=== PATIENT | female | born 1960 | race Hispanic/Latino ===

== ENCOUNTER 2018-01-22 11:02 | Inpatient (IN) | payer BC ==
[2018-01-22] VITALS (22 sets, daily range): BP systolic 108–157; BP diastolic 47–74
[~2018-01-22] VITALS: Ht 157.5 cm; Wt 61.1 kg
[2018-01-22 11:33] LABS: APPEARANCE,URINE Clear (CLEAR); BILIRUBIN,URINE Negative (NEGATIVE); COLOR,URINE Yellow (YELLOW); GLUCOSE, URINE (UA) Negative (NEGATIVE); KETONES,URINE Negative (NEGATIVE); LEUKOCYTE ESTERASE ,URINE Negative (NEGATIVE); NITRATE,URINE Negative (NEGATIVE); OCCULT BLOOD,URINE Negative (NEGATIVE); PROTEIN,URINE Negative (NEGATIVE); UROBILINOGEN,URINE 0.2 mg/dL (0.2-1.0)
[2018-01-22 11:57] LABS: CREATININE 0.7 mg/dL (0.5-1.5); POTASSIUM 3.5 mmol/L (3.5-5.1)
[2018-01-22 12:01] LABS: ALBUMIN 4.2 g/dL (3.5-5.0); BILIRUBIN,TOTAL 0.3 mg/dL (0.2-1.0); TOTAL PROTEIN, SERUM 8.2 g/dL (6.0-8.3)
[2018-01-22] MEDS ORDERED: IOPAMIDOL-370 75 ML VIAL IV ONE (12:08)
[2018-01-22] MEDS ORDERED: SODIUM CHLORIDE 0.9% 1000ML 1,000 ML IV ONE (12:09)
[2018-01-22] MEDS ORDERED: ONDANSETRON HCL MDV 20ML 2 MG/ML VIAL ONE ×3 (12:09→19:29)
[2018-01-22] MEDS ORDERED: MORPHINE SULFATE 4 MG/1ML SYG ONE (12:10)
[2018-01-22 12:48] LABS: BASOPHILS % (AUTO) 0.7 % (0.0-5.0); EOSINOPHILS % (AUTO) 0.4 % (0.0-8.0); HEMATOCRIT 40.5 % (36-48); LYMPHOCYTES % (AUTO) 21.2 % (21.0-51.0); MEAN CORPUSCULAR HEMOGLOBIN 31.6 pg (27.0-33.0); MEAN CORPUSCULAR HGB CONC 34.2 g/dL (32.0-36.0); MEAN CORPUSCULAR VOLUME 92.6 fL (79-99); MONOCYTES % (AUTO) 6.1 % (3.0-13.0); NEUTROPHILS % (AUTO) 71.6 % (40.0-77.0); PLATELET COUNT (AUTO) 317 K/uL (130-400); RED BLOOD CELL COUNT(AUTO) 4.37 MIL/uL (4.00-5.50); RED CELL DISTRIBUTION WIDTH 13.4 % (11.0-15.5); WHITE BLOOD COUNT (AUTO) 7.4 K/uL (4.8-10.8)
[2018-01-22] MEDS ORDERED: CEFOXITIN SODIUM 2 GM VIAL ONE (14:18)
[2018-01-22] MEDS ORDERED: BUPIVACAINE/PF 0.5% 30ML VIAL ONE (16:45)
[2018-01-22] MEDS ORDERED: BUPIVACAINE/EPI/PF 0.25% 30ML VIAL IJ ONE (16:45)
[2018-01-22] MEDS ORDERED: ROCURONIUM BROMIDE 10MG/1ML 5ML VL ONE (16:54)
[2018-01-22] MEDS ORDERED: FENTANYL CITRATE PF 50 MCG/1 ML 2ML VIAL ONE ×2 (16:55→17:44)
[2018-01-22] MEDS ORDERED: MIDAZOLAM HCL 1 MG/ML 2ML VIAL ONE (16:55)
[2018-01-22] MEDS ORDERED: PROPOFOL 10 MG/ML 20ML VIAL IV ONE (16:55)
[2018-01-22] MEDS ORDERED: MEPERIDINE-PF 25 MG/ML SYG ONE ×2 (18:13→18:23)
[2018-01-22] MEDS ORDERED: MEPERIDINE-PF 50 MG/ML SYG ONE (19:28)
[2018-01-22] MEDS ORDERED: ONDANSETRON HCL MDV 20ML 2 MG/ML VIAL IVP PRN (19:30)
[2018-01-22] MEDS ORDERED: MEPERIDINE-PF 25 MG/ML SYG IV PRN (19:45)
[2018-01-22] MEDS ORDERED: TRAMADOL HCL 50 MG TABLET PO PRN ×2 (19:45)
[2018-01-22] MEDS ORDERED: ACETAMINOPHEN 325 MG TAB PO PRN (19:45)
[2018-01-22] MEDS: LACTATED RINGERS 1000ML 1,000 ML IV SCH (21:54)
[2018-01-23] MEDS: LACTATED RINGERS 1000ML 1,000 ML IV SCH (04:25)
[2018-01-23 04:40] VITALS: BP 107/68
[2018-01-23 07:00] VITALS: BP 134/68
[2018-01-23 11:00] VITALS: BP 130/68
[2018-01-23] MEDS ORDERED: ACET-2247 PO (14:55)
[2018-01-23] MEDS ORDERED: TRAM50TA4 PO (14:55)
[2018-01-23] MEDS ORDERED: DOCU100T PO (14:56)
[2018-01-23] MEDS ORDERED: IBUP-2077 PO (14:58)
[2018-01-23] MEDS ORDERED: RANI-248 PO (14:58)
== END 2018-01-23 16:40 | disposition home or self-care (01) | DRG 343 ==
LOC: EDH 11:02 → EDHIP 15:10 → 3CH 19:03
PROVIDERS: ADMIT Surgery; ATTEND Surgery
PROC: 0DTJ4ZZ Resection of Appendix, Percutaneous Endoscopic Approach (ICD-10-PCS; principal; 2018-01-22 16:55)
DX: K35.80 Unspecified acute appendicitis (principal); Z90.710 Acquired absence of both cervix and uterus
CPT/HCPCS: 36415; 74177; 80053; 81003; 83690; 85025; 88304; 93005; A4344; J0694; J2175; J2250; J2270; J2704; J3010; J3490; J7030; J7120; Q9967

== ENCOUNTER 2021-07-11 14:29 | Emergency (ER) | payer BC ==
[~2021-07-11] VITALS: Ht 157.5 cm; Wt 55.8 kg
[~2021-07-11 14:29] MED LIST: ACET-2247 PO; DOCU100T PO; IBUP-2077 PO; RANI-662 PO; TRAM50TA4 PO
[2021-07-11 14:55] VITALS: BP 129/69
[2021-07-11 15:13] LABS: BASOPHILS % (AUTO) 0.2 % (0.0-5.0); EOSINOPHILS % (AUTO) 0.7 % (0.0-8.0); HEMATOCRIT 32.8 % (36-48); LYMPHOCYTES % (AUTO) 25.6 % (21.0-51.0); MEAN CORPUSCULAR HEMOGLOBIN 32.9 pg (27.0-33.0); MEAN CORPUSCULAR HGB CONC 32.6 g/dL (32.0-36.0); MEAN CORPUSCULAR VOLUME 100.9 fL (79-99); MONOCYTES % (AUTO) 9.2 % (3.0-13.0); NEUTROPHILS % (AUTO) 64.1 % (40.0-77.0); PLATELET COUNT (AUTO) 217 K/uL (130-400); RED BLOOD CELL COUNT(AUTO) 3.25 MIL/uL (4.00-5.50); RED CELL DISTRIBUTION WIDTH 21.1 % (11.0-15.5)
[2021-07-11 15:33] LABS: ALBUMIN 3.7 g/dL (3.5-5.0); BILIRUBIN,TOTAL 0.4 mg/dL (0.2-1.0); CREATININE 0.7 mg/dL (0.5-1.5); POTASSIUM 3.7 mmol/L (3.5-5.1); TOTAL PROTEIN, SERUM 7.5 g/dL (6.0-8.3)
[2021-07-11] MEDS ORDERED: 0.9%NACL 50ML 50 ML IV ONE (17:01)
[2021-07-11 17:27] LABS: APPEARANCE,URINE Clear (CLEAR); BILIRUBIN,URINE Negative (NEGATIVE); COLOR,URINE Yellow (YELLOW); GLUCOSE, URINE (UA) Negative (NEGATIVE); KETONES,URINE Negative (NEGATIVE); LEUKOCYTE ESTERASE ,URINE Negative (NEGATIVE); NITRATE,URINE Negative (NEGATIVE); OCCULT BLOOD,URINE Negative (NEGATIVE); PH,URINE 6.5 (5.0-8.0); PROTEIN,URINE Negative (NEGATIVE); UROBILINOGEN,URINE 0.2 mg/dL (0.2-1.0)
[2021-07-11] MEDS ORDERED: IOHEXOL-350 75 ML VIAL IV ONE (18:40)
[2021-07-11 19:36] VITALS: BP 121/53
[2021-07-11] MEDS ORDERED: ACETAMINOPHEN 500 MG TABLET PO ONE (20:00)
[2021-07-11] MEDS ORDERED: AZIT500T4 PO (20:22)
[2021-07-11] MEDS ORDERED: D-ME118S47 PO (20:22)
[2021-07-11 20:59] VITALS: BP 118/59
== END 2021-07-11 21:01 | disposition home or self-care (01) ==
LOC: EDH 14:29
DX: U07.1 COVID-19 (principal); C50.919 Malignant neoplasm of unspecified site of unspecified female breast; C78.00 Secondary malignant neoplasm of unspecified lung; Z79.1 Long term (current) use of non-steroidal anti-inflammatories (NSAID); Z79.899 Other long term (current) drug therapy
CPT/HCPCS: 36415; 71045; 71275; 80053; 81003; 82550; 83605; 84484; 85025; 85378; 87040 ×2; 87088; 87635; 87804 ×2; 93005; 99291; C9803; Q9967